=== PATIENT | female | born 1955 | race Caucasian/White ===

== ENCOUNTER 2018-09-03 13:38 | Outpatient (CLI) | payer OTHER ==
[2018-09-03] MEDS ORDERED: CELLWISE PO (14:28)
[2018-09-03] MEDS ORDERED: TURM1POW2 PO (14:28)
[2018-09-03] MEDS ORDERED: CALC1CAP8 PO (14:28)
[2018-09-03] MEDS ORDERED: ESTR0.5T PO (14:28)
[2018-09-03] MEDS ORDERED: OMEG-157 PO (14:28)
[2018-09-03] MEDS ORDERED: MULT-642 PO (14:28)
[2018-09-03] MEDS ORDERED: [UNRECOGNIZED DRUG - OTHER] PO (14:28)
[2018-09-03] MEDS ORDERED: VITA1TAB19 PO (14:28)
[2018-09-03] MEDS ORDERED: MEDR2.5T30 PO (14:28)
[2018-09-03] MEDS ORDERED: CART1TAB5 PO (14:28)
[2018-09-03] MEDS ORDERED: GLUC500T11 PO (14:28)
[2018-09-03] MEDS ORDERED: GINK120C PO (14:28)
[2018-09-03] MEDS ORDERED: LUTE6TAB PO (14:28)
[2018-09-03 15:34] LABS: BASOPHILS # (AUTO) 0.03 x10^3/uL (0-0.1); BASOPHILS % (AUTO) 1 % (0-1); EOSINOPHILS # (AUTO) 0.06 x10^3/uL (0-0.4); EOSINOPHILS % (AUTO) 1 % (1-7); LYMPHOCYTES # (AUTO) 1.53 x10^3/uL (1-3.4); LYMPHOCYTES % (AUTO) 27 % (22-44); MD NO; MEAN CORPUSCULAR HEMOGLOBIN 30.4 pg (27.0-34.8); MEAN CORPUSCULAR VOLUME 91.9 fL (80-100); MEAN PLATELET VOLUME 10.7 fL (7.4-10.4); MONOCYTES # (AUTO) 0.29 x10^3/uL (0.2-0.8); MONOCYTES % (AUTO) 5 % (2-9); NEUTROPHILS # (AUTO) 3.78 x10^3/uL (1.8-6.8); NEUTROPHILS % (AUTO) 67 % (42-75); PLATELET COUNT 207 x10^3/uL (130-400); RED BLOOD COUNT 4.13 x10^6/uL (3.82-5.3); RED CELL DISTRIBUTION WIDTH 13.4 % (9.6-15.2)
[2018-09-03 15:35] LABS: ANION GAP 6 mmol/L (5-15); CALCIUM 9.3 mg/dL (8.5-10.1); CHLORIDE 109 mmol/L (98-107); CREATININE 0.71 mg/dL (0.55-1.02)
== END 2018-09-03 23:59 | disposition home or self-care (01) ==
LOC: STAR 13:38
PROVIDERS: ATTEND Obstetrics & Gynecology
DX: Z01.818 Encounter for other preprocedural examination (principal); N81.2 Incomplete uterovaginal prolapse; N81.6 Rectocele; Z88.0 Allergy status to penicillin; Z88.6 Allergy status to analgesic agent
CPT/HCPCS: 36415; 80048; 85025; 93005

== ENCOUNTER 2019-06-17 14:16 | Outpatient (CLI) | payer OTHER ==
[~2019-06-17 14:16] MED LIST: CALC1CAP8 PO; CART1TAB5 PO; CELLWISE PO; ESTR0.5T PO; GINK120C PO; GLUC500T11 PO; LUTE6TAB PO; MEDR2.5T30 PO; MULT-642 PO; OMEG-157 PO; TURM1POW2 PO; VITA1TAB19 PO; [UNRECOGNIZED DRUG - OTHER] PO
== END 2019-06-17 23:59 | disposition home or self-care (01) ==
LOC: STAR 14:16
PROVIDERS: ATTEND Obstetrics & Gynecology Female Pelvic Medicine and Reconstructive Surgery
DX: Z01.818 Encounter for other preprocedural examination (principal); N81.5 Vaginal enterocele; N81.10 Cystocele, unspecified; N39.3 Stress incontinence (female) (male)
CPT/HCPCS: 93005

== ENCOUNTER 2019-06-22 11:29 | Day surgery (SDC) | payer OTHER ==
[~2019-06-22] VITALS: Ht 172.7 cm; Wt 68.3 kg
[~2019-06-22 11:29] MED LIST changes: +BUPIVACAINE/PF-EPI 0.25% 1:200K ONE; +GENTAMICIN 80 MG/2 ML ONE
[2019-06-22] MEDS ORDERED: LACTATED RINGERS 1,000 ML IV SCH (11:42)
[2019-06-22] MEDS ORDERED: SCOPOLAMINE PATCH, 1.5MG PATCH.TD72 TD STA (11:43)
[2019-06-22] MEDS ORDERED: FAMOTIDINE 20 MG TABLET PO STA (11:43)
[2019-06-22 11:45] VITALS: BP 107/70
[2019-06-22] MEDS ORDERED: ALBUTEROL/IPRATROPIUM 2.5MG/0.5MG, 3 ML NPPB PRN (14:30)
[2019-06-22] MEDS ORDERED: HYDROcodone/APAP 7.5-325MG/15ML UDC PO PRN (14:30)
[2019-06-22] MEDS ORDERED: DIPHENHYDRAMINE 50 MG/ML, 1ML IVPush PRN (14:30)
[2019-06-22] MEDS ORDERED: MEPERIDINE/PF 25MG/ML,1ML IVPush PRN (14:30)
[2019-06-22] MEDS ORDERED: FENTANYL PF 100 MCG/2ML IV PRN (14:30)
[2019-06-22] MEDS ORDERED: OXYcodone 5 MG/5 ML ORAL.SOL UDC PO PRN (14:30)
[2019-06-22] MEDS ORDERED: ONDANSETRON 2MG/ML, 2ML IV PRN ×2 (14:30→21:00)
[2019-06-22] MEDS ORDERED: KETOROLAC 30 MG/1 ML IV PRN ×2 (14:30→21:00)
[2019-06-22] MEDS ORDERED: DEXAMETHASONE 4 MG/ML, 1ML IV PRN (14:30)
[2019-06-22] MEDS ORDERED: HYDROmorphone 2 MG/ML, 1ML IVPush PRN (14:30)
[2019-06-22] MEDS ORDERED: MIDAZOLAM 1 MG/ML, 2ML IV PRN (14:30)
[2019-06-22] MEDS ORDERED: EPHEDRINE 50 MG/ML, 1ML IVPush PRN (14:30)
[2019-06-22] MEDS ORDERED: METOCLOPRAMIDE 5 MG/ML, 2ML IV PRN (14:30)
[2019-06-22] MEDS ORDERED: EPHEDRINE 50 MG/ML, 1ML IM PRN (14:30)
[2019-06-22] MEDS ORDERED: MORPHINE SULFATE 4 MG/ML, 1ML IVPush PRN (14:30)
[2019-06-22] MEDS ORDERED: LABETALOL 5MG/ML, 20ML IV PRN (14:30)
[2019-06-22] MEDS ORDERED: hydrALAzine 20 MG/ML, 1ML IV PRN (14:30)
[2019-06-22] MEDS ORDERED: ROCURONIUM 10MG/ML,5ML ONE (17:35)
[2019-06-22] MEDS ORDERED: GLYCOPYRROLATE 0.2MG/1ML, 5ML ONE (17:35)
[2019-06-22] MEDS ORDERED: MIDAZOLAM 1 MG/ML, 2ML ONE (17:35)
[2019-06-22] MEDS ORDERED: DEXAMETHASONE 4 MG/ML, 1ML ONE (17:35)
[2019-06-22] MEDS ORDERED: PROPOFOL 10 MG/ML, 20ML ONE (17:35)
[2019-06-22] MEDS ORDERED: LIDOCAINE-MPF 2% ,5ML ONE (17:35)
[2019-06-22] MEDS ORDERED: FENTANYL PF 250 MCG/5ML ONE (17:35)
[2019-06-22] MEDS ORDERED: FUROSEMIDE 20 MG/2 ML ONE (18:39)
[2019-06-22] MEDS ORDERED: CEFAZOLIN 1,000 MG ONE (18:44)
[2019-06-22] MEDS ORDERED: MEPERIDINE/PF 25MG/ML,1ML ONE (19:13)
[2019-06-22] MEDS ORDERED: HYDROcodone/APAP 5/325 TABLET PO PRN (21:00)
[2019-06-22] MEDS ORDERED: OXYcodone/APAP 5/325MG TABLET PO PRN (21:00)
[2019-06-22] MEDS ORDERED: IBUPROFEN 600 MG TABLET PO PRN (21:00)
[2019-06-22] MEDS ORDERED: HYDROmorphone 1 MG/ML, 1ML INJ IV PRN (21:00)
== END 2019-06-22 22:54 | disposition home or self-care (01) ==
LOC: OUT 11:29 → 4NW 20:47 → OUT 22:54
PROVIDERS: ATTEND Obstetrics & Gynecology Female Pelvic Medicine and Reconstructive Surgery
DX: N81.89 Other female genital prolapse (principal); N39.46 Mixed incontinence; N32.81 Overactive bladder; Z90.710 Acquired absence of both cervix and uterus; Z88.0 Allergy status to penicillin
CPT/HCPCS: 57265; 57282; 57288; C1771; J0690; J1100; J1580; J1940; J2175; J2250; J2704; J3010; J7120; G0378